=== PATIENT | female | born 1995 | race Two or more races ===

== ENCOUNTER 2016-11-22 22:08 | Emergency (ER) | payer OTHER ==
[~2016-11-22] VITALS: Ht 154.9 cm; Wt 65.8 kg
[2016-11-22 22:43] LABS: KETONES,URINE NEGATIVE (NEGATIVE); LEUKOCYTE ESTERASE ,URINE 1+ (NEGATIVE)
[2016-11-22 22:45] LABS: PREGNANCY TEST URINE QUAL POSITIVE (NEGATIVE)
[2016-11-22 22:47] LABS: ADD UA MICROSCOPIC YES
[2016-11-22 22:53] LABS: ADD URINE CULTURE YES
[2016-11-22 23:04] VITALS: BP 124/70
== END 2016-11-22 23:05 | disposition home or self-care (01) ==
LOC: ER 22:08
DX: O23.41 Unspecified infection of urinary tract in pregnancy, first trimester (principal); Z3A.01 Less than 8 weeks gestation of pregnancy
CPT/HCPCS: 81001; 84703; 87086; 99284; A4606; Z7610; 81000-TC

== ENCOUNTER 2017-03-19 20:55 | Emergency (ER) | payer MEDICAID, OTHER ==
[~2017-03-19] VITALS: Ht 154.9 cm; Wt 81.6 kg
[2017-03-19] MEDS ORDERED: IV NS 0.9% 500 ML IV ONE (21:09)
[2017-03-19] MEDS ORDERED: IV SET PRIMARY 1 EA INFUS.SET MC ONE (21:09)
[2017-03-19] MEDS ORDERED: KETOROLAC TROMETHAMINE 15 MG/ML VIAL ONE (21:09)
[2017-03-19] MEDS ORDERED: ONDANSETRON HCL/PF 4 MG/2 ML VIAL ONE (21:09)
--- NOTE | 2017-03-19 21:18 | NUR ---
pt medicated by rn per er md order.
[2017-03-19] MEDS ORDERED: KETOROLAC TROMETHAMINE INJ 30 MG/ML VIAL IV ONE (21:30)
[2017-03-19] MEDS ORDERED: IV NS 0.9% 500 ML BAG IV ONE (21:30)
[2017-03-19] MEDS ORDERED: ONDANSETRON HCL/PF 4 MG/2 ML VIAL IVP ONE (21:30)
--- NOTE | 2017-03-19 21:45 | NUR ---
IV removed. Catheter intact and site benign. Pressure and 4x4 applied to site. No bleeding noted. Patient discharged to home in stable condition. Written and verbal after care instructions given. Patient verbalizes understanding of instruction. ambulatory with a steady gait
[2017-03-19 21:46] VITALS: BP 127/63
== END 2017-03-19 21:47 | disposition home or self-care (01) ==
LOC: ER 20:55
DX: R11.2 Nausea with vomiting, unspecified (principal); R19.7 Diarrhea, unspecified; R10.9 Unspecified abdominal pain
CPT/HCPCS: 84703; 96374; 96375; 99284; A4606; J1885; J2405; J7040; Z7610

== ENCOUNTER 2018-07-05 09:15 | Emergency (ER) | payer SELFPAY ==
[~2018-07-05] VITALS: Ht 152.4 cm; Wt 83.0 kg
[2018-07-05] MEDS ORDERED: diphenhydrAMINE HCL 25 MG CAPSULE PO ONE (10:00)
[2018-07-05] MEDS ORDERED: predniSONE 20 MG TABLET PO ONE (10:00)
[2018-07-05] MEDS ORDERED: diphenhydrAMINE HCL 50 MG CAPSULE ONE (10:01)
[2018-07-05] MEDS ORDERED: predniSONE 20 MG TABLET ONE (10:01)
[2018-07-05 10:56] VITALS: BP 128/75
== END 2018-07-05 11:04 | disposition home or self-care (01) ==
LOC: ER 09:18
DX: T78.40XA Allergy, unspecified, initial encounter (principal); X58.XXXA Exposure to other specified factors, initial encounter
CPT/HCPCS: 99283; J7512; Q0163